=== PATIENT | male | born 1990 | race American Indian/Alaskan Native ===

== ENCOUNTER 2017-04-03 21:29 | Emergency (ER) | payer SELFPAY ==
[2017-04-04] MEDS ORDERED: FUL-GLO OP ONE ×2 (00:34→00:39)
[2017-04-04] MEDS ORDERED: TETRACAINE 0.5% ONE (00:34)
[2017-04-04] MEDS ORDERED: TETRACAINE 0.5% OU ONE (00:38)
[2017-04-04] MEDS ORDERED: MOTRIN PO ONE (01:46)
--- NOTE | 2017-04-04 02:12 | Emergency Department Report ---
ED Eye Problem HPI - General Chief complaint: Eye Problems Stated complaint: FOREIGN BODY IN RT EYE Time Seen by Provider: 04/04/17 00:45 Source: patient Mode of arrival: Ambulatory Limitations: No Limitations - History of Present Illness Initial comments: 26-year-old male past medical history none presents with complaint of right eye pain. 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 Patient states he immediately irrigated afterward. Patient states he has some blurry vision and pain in his right eye. Denies any other injuries. Patient is unaware of tetanus vaccine status. Patient is accompanied by his girlfriend. He is fully awake alert and oriented 3 appears uncomfortable due to right eye pain. MD chief complaint: eye pain, eye injury -: This afternoon Onset Description: sudden Location: right eye Place: work If Injury: direct trauma Eye Symptoms: burning, redness, pain, foreign body sensation, itching, blurry vision Severity: moderate Severity scale (0 -10): 5 If Pain, Quality: burning, throbbing Consistency: constant Associated Symptoms: none Treatments Prior to Arrival: irrigated eye - Related Data Previous Rx's Medication Instructions Recorded Last Taken Type Prednisone 20 mg PO BID #10 tablet 10/05/14 Unknown Rx hydrOXYzine HCL [Atarax] 25 mg PO Q6HR PRN #30 tablet 10/05/14 Unknown Rx Amoxicillin [Trimox CAP] 500 mg PO Q8H #30 capsule 03/03/15 Unknown Rx HYDROcodone/APAP 10-325 [[place] 1 each PO Q6HR PRN #12 tablet 03/03/15 Unknown Rx 10/325] Glycerin/Propylene Glycol 1 drop OP Q4H PRN #1 bottle 04/04/17 Unknown Rx [Artificial Tears Drops] Ibuprofen [Motrin] 600 mg PO Q8H PRN #30 tablet 04/04/17 Unknown Rx Tobramycin 0.3% [Tobrex] 1 drop OD Q4H #1 bottle 04/04/17 Unknown Rx Allergies Allergy/AdvReac Type Severity Reaction Status Date / Time No Known Allergies Allergy Verified 10/05/14 16:25 ED Review of Systems ROS: Stated complaint: FOREIGN BODY IN RT EYE Other details as noted in HPI Constitutional: denies: chills, fever Eyes: eye pain. denies: eye discharge, vision change ENT: denies: ear pain, throat pain Respiratory: denies: cough, shortness of breath, wheezing Cardiovascular: denies: chest pain, palpitations Endocrine: no symptoms reported Gastrointestinal: denies: abdominal pain, nausea, diarrhea Genitourinary: denies: urgency, dysuria Musculoskeletal: denies: back pain, joint swelling, arthralgia Skin: denies: rash, lesions Neurological: denies: headache, weakness, paresthesias Psychiatric: denies: anxiety, depression Hematological/Lymphatic: denies: easy bleeding, easy bruising ED Past Medical Hx - Past Medical History Previous Medical History?: Yes Additional medical history: hx. heart murmur - Surgical History Past Surgical History?: No - Social History Smoking Status: Current Every Day Smoker Substance Use Type: Alcohol - Medications Home Medications: Home Medications Medication Instructions Recorded Confirmed Last Taken Type Prednisone 20 mg PO BID #10 tablet 10/05/14 Unknown Rx hydrOXYzine HCL [Atarax] 25 mg PO Q6HR PRN #30 tablet 10/05/14 Unknown Rx Amoxicillin [Trimox CAP] 500 mg PO Q8H #30 capsule 03/03/15 Unknown Rx HYDROcodone/APAP 10-325 [[place] 1 each PO Q6HR PRN #12 tablet 03/03/15 Unknown Rx 10/325] Glycerin/Propylene Glycol 1 drop OP Q4H PRN #1 bottle 04/04/17 Unknown Rx [Artificial Tears Drops] Ibuprofen [Motrin] 600 mg PO Q8H PRN #30 tablet 04/04/17 Unknown Rx Tobramycin 0.3% [Tobrex] 1 drop OD Q4H #1 bottle 04/04/17 Unknown Rx ED Physical Exam - General Limitations: No Limitations General appearance: alert, in no apparent distress - Head Head exam: Present: atraumatic, normocephalic - Eye Eye exam: Present: normal appearance, PERRL - Expanded Eye Exam Expanded Pupils: Regular, Round: Bilateral, Reactive: Bilateral Sclera/Conjunctival: Normal Inspection: Left, Injection: Left (right conjunctiva is visibly injected. Fluorescein stain exam shows a corneal abrasion at approximately 3:00 to the left of the limbus) Visual acuity (R) = 20/: 25 (visual acuity checked twice and right eye consistently 20 out of 25) Visual acuity (L) = 20/: 20 (visual acuity left eye 20/20) With correction: No - ENT ENT exam: Present: mucous membranes moist - Neck Neck exam: Present: normal inspection - Respiratory Respiratory exam: Present: normal lung sounds bilaterally. Absent: respiratory distress - Cardiovascular Cardiovascular Exam: Present: regular rate, normal rhythm. Absent: systolic murmur, diastolic murmur, rubs, gallop - GI/Abdominal GI/Abdominal exam: Present: soft, normal bowel sounds - Rectal Rectal exam: Present: deferred - Extremities Exam Extremities exam: Present: normal inspection - Back Exam Back exam: Present: normal inspection - Neurological Exam Neurological exam: Present: alert, oriented X3 - Psychiatric Psychiatric exam: Present: normal affect, normal mood - Skin Skin exam: Present: warm, dry, intact, normal color. Absent: rash ED Course Vital Signs 04/03/17 04/04/17 04/04/17 22:03 02:45 02:50 Temperature 98.7 F Pulse Rate 80 58 L Respiratory 18 18 18 Rate Blood Pressure 112/70 100/71 O2 Sat by Pulse 97 100 Oximetry ED Medical Decision Making - Medical Decision Making A/P: Corneal abrasion 1-patient's vision is 20/20 overall and 20/25 right eye. Pupil is reactive to light. Patient's eye irrigated with 100 mL of saline flushes, patient felt significant relief and states that blurry vision has abated. No visualized foreign body on direct action of superficial eye. Tobramycin drops x1 week. 2-Motrin when necessary 3-tetanus updated today 4-follow up with ophthalmology Critical care attestation.: If time is entered above; I have spent that time in minutes in the direct care of this critically ill patient, excluding procedure time. ED Disposition Clinical Impression: Corneal abrasion, right Qualifiers: Encounter type: initial encounter Qualified Code(s): S05.01XA - Injury of conjunctiva and corneal abrasion without foreign body, right eye, initial encounter Disposition: TO HOME OR SELFCARE Is pt being admited?: No Does the pt Need Aspirin: No Condition: Stable Instructions: Corneal Abrasion (ED) Prescriptions: Glycerin/Propylene Glycol [Artificial Tears Drops] 1 drop OP Q4H PRN #1 bottle PRN Reason: Itching Ibuprofen [Motrin] 600 mg PO Q8H PRN #30 tablet PRN Reason: Pain Tobramycin 0.3% [Tobrex] 1 drop OD Q4H #1 bottle Referrals: JAYJAY MCCALL MD [Staff Physician] - 3-5 Days GERMÁN ORTEZ MD [Staff Physician] - 3-5 Days Forms: Accompanied Note, Work/School Release Form(ED) Time of Disposition: 02:25
[2017-04-04] MEDS ORDERED: BOOSTRIX IM ONE (02:23)
[2017-04-04 02:52] VITALS: BP 100/71
== END 2017-04-04 02:51 | disposition home or self-care (01) ==
LOC: ED 21:29
DX: S05.01XA Injury of conjunctiva and corneal abrasion without foreign body, right eye, initial encounter (principal); X58.XXXA Exposure to other specified factors, initial encounter; Y93.9 Activity, unspecified; Y92.9 Unspecified place or not applicable; Y99.9 Unspecified external cause status
CPT/HCPCS: 90471; 90715